=== PATIENT | female | born 1945 | race Caucasian/White ===

== ENCOUNTER 2018-01-09 12:44 | Inpatient (IN) | payer MEDICARE ==
[2018-01-09] MEDS ORDERED: Albuterol Sulfate 2.5 mg/3 ml Neb ONE (13:00)
[2018-01-09] MEDS ORDERED: Albuterol Sulfate 2.5 mg/0.5 ml Neb ONE (13:00)
[2018-01-09] MEDS ORDERED: methylPREDNISolone Sod Succ/PF 125 MG/2 ML VIAL ONE (13:20)
[2018-01-09] MEDS ORDERED: Water For Inject, Bacteriostat 30 ML ONE (13:21)
[2018-01-09] MEDS ORDERED: Lorazepam 2 MG/ML VIAL ONE (13:27)
[2018-01-09] MEDS ORDERED: Azithromycin 500 MG VIAL ONE (13:56)
[2018-01-09 13:59] LABS: #Basophils 0.1 thou/uL (0.0-0.2); #Eosinphils 0.1 thou/uL (0.0-0.7); #Lymphocytes 0.2 thou/uL (1.20-3.40); #Monocytes 0.4 thou/uL (0.11-0.59); #Neutrophils 18.3 thou/uL (1.40-6.50); %Basophils 0.7 % (0.0-1.0); %Eosinophils 0.3 % (0.0-10.0); %Monocytes 2.1 % (0.0-10.0); Hemoglobin 12.3 g/dL (12.0-16.0); Mean Corpuscular HGB CONC 31.2 g/dL (32.0-36.0); Mean Corpuscular Volume 83.2 fl (81.0-99.0); Mean Platelet Volume 7.6 fL (7.4-10.4); Platelet Count 294 thou/uL (130-400); Red Blood Cell (RBC) Count 4.74 mill/uL (4.20-5.40)
[2018-01-09 14:03] LABS: Actual Bicarbonate (HCO3a) 38.5 mEq/L (22-26); Base Excess (BEa) 9.2 mEq/L (0 (+/-) 2.5); CO2 Tension 82.3 mmHg (35.0-45.0); O2 Tension (PaO2) 86.1 mmHg (80.0-100.0); pH, Arterial 7.29 (7.35-7.45)
[2018-01-09 14:04] LABS: Hematocrit-ABG 41.4 % (36.0-47.0); Hemoglobin (Hb) 11.7 g/dL (12.0-16.0)
[2018-01-09 14:05] LABS: ALV-art Gradient 96.225 (0-20); Analyzer IN Cardio ER; Calcium, Ionized 1.2 mmol/L (1.12-1.30); Puncture Site LRA
[2018-01-09 14:18] LABS: BUN (Urea Nitrogen) 20 mg/dL (9.8-20.1); Calc. Creatinine Clearance 0 mL/min (70-130); Calcium 9.6 mg/dL (7.8-10.44); Estimated GFR-MDRD 77; Glucose 186 mg/dL (83-110)
[2018-01-09 14:22] LABS: Troponin I Less than 0.010 ng/mL (< 0.028)
[2018-01-09 14:27] LABS: Anion Gap 14 mmol/L (10-20); Carbon Dioxide 36 mmol/L (23-31); Chloride 93 mmol/L (98-107); Potassium 3.7 mmol/L (3.5-5.1); Sodium 139 mmol/L (136-145)
[2018-01-09] MEDS ORDERED: Magnesium Sulfate 3 GM in Sodium Chloride 0.9% 100 ML IVPB SCH (15:30)
[2018-01-09] MEDS ORDERED: Mag-Al 1200 mg/1200 mg/30 ML UDCUP PO PRN (15:47)
[2018-01-09] MEDS ORDERED: HumaLOG 300 UNITS/3 ML VIAL SC PRN (15:47)
[2018-01-09] MEDS ORDERED: Acetaminophen 325 MG TAB PO PRN (15:47)
[2018-01-09] MEDS ORDERED: Guaifenesin DM 100-10/5 ML UDCUP PO PRN (15:47)
[2018-01-09] MEDS ORDERED: Acetaminophen 650 MG Suppository PR PRN (15:47)
[2018-01-09] MEDS ORDERED: Dextrose 50% Abboject 50 ML SYRINGE SLOW IVP PRN (15:47)
[2018-01-09] MEDS ORDERED: Dextrose 5% in Water 1,000 ML IV PRN (15:47)
[2018-01-09] MEDS ORDERED: Ondansetron HCl/PF 4 MG/2 ML Vial IVP PRN (15:47)
[2018-01-09 15:59] VITALS: BMI 34.0
[2018-01-09] MEDS ORDERED: Benzonatate 100 MG CAP PO SCH (16:00)
[2018-01-09 16:07] LABS: Troponin I Less than 0.010 ng/mL (< 0.028)
[2018-01-09] MEDS: Sodium Chloride 0.9% 1,000 ML IV SCH (16:11)
[2018-01-09] MEDS: Cefepime 1 GM in Sodium Chloride 0.9% 100 ML IVPB SCH (16:12)
[2018-01-09] MEDS: HumaLOG 300 UNITS/3 ML VIAL SC PRN (16:41)
[2018-01-09] MEDS: Lorazepam 2 MG/ML VIAL SLOW IVP PRN ×2 (17:44→22:01)
--- NOTE | 2018-01-09 20:20 | HP ---
REASON FOR ADMISSION: Acute respiratory failure, chronic obstructive pulmonary disease exacerbation. HISTORY OF PRESENT ILLNESS: Please note majority of this history is obtained by my talking to patient's as the patient is in severe respiratory failure and is on BiPAP and is in and out of consciousness. Per , the patient was hospitalized at [facility] and was placed in ICU on BiPAP, 6 weeks back. After that, she was sent to [facility] for further recuperation. She came back home on Thursday. From then on, she has been progressively declining. She did not participate well with physical therapy and was very tired yesterday. She did not eat last night. Her shortness of breath was getting worse. She is on 3 liters home oxygen and prednisone 20 mg daily. As patient was not getting better, they took her back to [facility] from where she was transferred here as there was no ICU beds there. The patient also has known history of lung cancer and apparently has been in remission from last year and a half or so. No complaints of fever as such. She uses Trilogy ventilator at home. She also follows up with Dr. Barrett for Pulmonology. PAST MEDICAL AND SURGICAL HISTORY: History of COPD, left lung cancer with recurrence in the right lung in 2016 and has received 5 doses of radiation therapy for the same from Dr. Thacker. She has had regular PET scans done and has not had any recurrence per and is in remission. Hypertension, diabetes mellitus type 2, appendectomy, and hernia repair. CURRENT MEDICATIONS: The patient is on DuoNebs q.6 hourly, Lasix 20 mg daily, Protonix 40 mg daily, prednisone 20 mg daily, valsartan with hydrochlorothiazide 160/12.5 mg daily, Symbicort 80/4.5 mcg inhaler twice daily. ALLERGIES: IODINE, CODEINE, PENICILLIN, SULFA, and TETRACYCLINE. PERSONAL HISTORY: Quit smoking 11 years ago, but has smoked for nearly 30-40 years with 2 packs per day. Does not abuse alcohol or drugs. Lives with her . She has been ambulating 50 to 100 feet with a rolling walker inside the house. FAMILY HISTORY: Mother in her 80s from massive [place] in sleep. Father had emphysema and from complications from the same in his 70s. REVIEW OF SYSTEMS: Cannot be obtained as patient is not awake and oriented. PHYSICAL EXAMINATION: GENERAL: The patient is a 72-year-old female who is currently in moderate to severe respiratory distress, on BiPAP. VITAL SIGNS: Blood pressure 118/56, pulse 110 per minute, respiratory rate 26 per minute, temperature 98 degrees Fahrenheit, saturating 93% on BiPAP. NECK: Supple, no elevated JVD. HEENT: Eyes: Extraocular muscles intact. Pupils reacting to light. Oral cavity: Mucous membranes are dry. No exudates or congestion. CARDIOVASCULAR: S1, S2 heard. Tachycardic, no murmur. RESPIRATORY: Air entry 1+ bilaterally. Scattered wheezes plus bilateral. ABDOMEN: Soft, bowel sounds heard. No tenderness, rigidity or guarding. The patient is seen using accessory muscles of respiration including abdominal muscles and diaphragm and intercostal muscles. EXTREMITIES: Mild peripheral edema, no calf tenderness. VASCULAR SYSTEM: Peripheral pulses 1+ bilateral, no ischemic ulcerations or gangrene. CENTRAL NERVOUS SYSTEM: No gross focal deficits seen. The patient is seen moving all extremities. PSYCHIATRIC: Cannot be accurately assessed as patient is not oriented at present. LABORATORY AND X-RAY FINDINGS: White count of 19, H&H 12 and 39, platelet count 294 with 96% neutrophils. Blood gas done shows a pH of 7.29, pCO2 82, pO2 86, BUN 20, creatinine 0.7, serum bicarbonate is 36. Influenza A and B antigens are negative. Chest x-ray by my review shows chronic lung changes with poor inspiratory effort. Also, right upper lobe scarring is seen. CLINICAL IMPRESSION AND PLAN: The patient will be admitted to ICU for acute respiratory failure with hypoxia and hypercarbia, acute on chronic obstructive pulmonary disease exacerbation. The patient is steroid and oxygen dependent. She has been placed on Solu-Medrol 40 mg IV q.6 hourly. She has elevated white count likely from her chronic steroid use, but nevertheless in view of her recent hospitalization and being in multiple healthcare facilities, we will place her on cefepime and Levaquin for now. Blood and sputum cultures will be obtained. She will be on Mucinex, DuoNebs and Tessalon Perles. The patient's code status was discussed with the . The patient never wanted to be on the ventilator. In view of this, family wanted her to be DO NOT RESUSCITATE. Her overall prognosis is poor and the at bedside is clearly aware of it. He is also the power of it network engineer for patient. Dr. Pearl, internet project manager, has been notified from ER and has already seen the patient here in the ICU now. We will continue to closely monitor her in the ICU. LILIANA
[2018-01-09] MEDS: guaiFENesin ER 600 MG TAB PO SCH (21:53)
[2018-01-09] MEDS: Benzonatate 100 MG CAP PO SCH (21:53)
[2018-01-09] MEDS: Docusate 100 MG CAP PO SCH (21:53)
[2018-01-09] MEDS: Famotidine 20 MG TAB PO SCH (21:53)
[2018-01-10] MEDS: Lorazepam 2 MG/ML VIAL SLOW IVP PRN ×4 (01:01→18:30)
--- NOTE | 2018-01-10 01:11 | CON ---
DATE OF CONSULTATION: 01/09/2018 HISTORY OF PRESENT ILLNESS: Ms. Christensen is a 72-year-old female with chronic obstructive pulmonary disea se. She apparently was hospitalized at [facility] recently and went into rehab and has only been home for a day. She presented back after being transferred here by ground ambulance with r espiratory failure requiring BiPAP until she was placed on a facemask for transfer. She has been seen by Dr. Barrett here in the past. He has last seen her in the hospital in 2016. There is a chest CT from 12/2016, which was ordered by Dr. Sorenson, which showed a paraspinal hematoma, post treatment changes to her upper lobes. 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 She denies fever, chills, or sweats. Her says she has had progressively increasing shortness of breath for at least a week. He relayed this to the nurses. He was gone when I evaluated her. PAST MEDICAL HISTORY: Remarkable for diabetes, hypertension, asthma, laparotomy, herniorrhaphy, and squamous cell carcinoma. FAMILY HISTORY: Negative for lung disease in early age. REVIEW OF SYSTEMS: Not easily obtainable because she is extremely short of breath. CODE STATUS: She is adamant that she is never going to be intubated. PHYSICAL EXAMINATION: GENERAL: She could speak in two-word sentences. VITAL SIGNS: Her oximetry is in the mid 90s. I have turned her O2 down to where her oximetry is in the high 80s. She is on BiPAP. Her heart rate is 99, blood pressure 99/65. HEENT: Pupils are equal. Sclerae are anicteric. NECK: Supple. LUNGS: Remarkable for distant tight wheezes. HEART: Regular rhythm. ABDOMEN: Soft. EXTREMITIES: Without clubbing, cyanosis, or edema. LABORATORY DATA: White count 19, hemoglobin 12.3, platelets 294. Sodium 139, potassium 3.7, chlorid e 93, bicarbonate 36, BUN 20, creatinine 0.74. A pH 7.29, pCO2 of 82, pO2 of 86 and was on BiPAP 12/ 5 with FiO2 of 40%. She is down to 26% FiO2. Now, his sats were in the high 80s. Chest radiograph done in [place] reportedly was clear. IMPRESSION: 1. Chronic obstructive pulmonary disease/asthma exacerbation, severe. 2. Chronic respiratory failure with acute decompensation. 3. DO NOT RESUSCITATE status. She is adamant that she is never going to be intubated. This was rep orted to me by the physician in the ER, and I confirmed this. I have even asked her would she allow herself to be intubated for a few days and she quickly told me no. So, we will continue with BiPAP s upport, Ativan for comfort, as well as Xanax. She does not like morphine, so this will not be used. Critical care time, 30 minutes.
[2018-01-10] MEDS: Cefepime 1 GM in Sodium Chloride 0.9% 100 ML IVPB SCH ×2 (04:17→15:19)
[2018-01-10 04:43] LABS: #Lymphocytes 0.2 thou/uL (1.20-3.40); #Monocytes 0.2 thou/uL (0.11-0.59); #Neutrophils 11.4 thou/uL (1.40-6.50); %Eosinophils 0.2 % (0.0-10.0); %Lymphocytes 1.8 % (21.0-51.0); Hemoglobin 10.7 g/dL (12.0-16.0); Mean Corpuscular HGB CONC 30.9 g/dL (32.0-36.0); Mean Corpuscular Hemoglobin 25.9 pg (27.0-31.0); Mean Corpuscular Volume 83.9 fl (81.0-99.0); Mean Platelet Volume 7.8 fL (7.4-10.4); Platelet Count 200 thou/uL (130-400); RBC Distribution Width 15.8 % (11.5-14.5); Red Blood Cell (RBC) Count 4.12 mill/uL (4.20-5.40); White Blood Cell (WBC) Count 11.8 thou/uL (4.8-10.8)
[2018-01-10 04:55] LABS: Anion Gap 14 mmol/L (10-20); BUN (Urea Nitrogen) 21 mg/dL (9.8-20.1); Calc. Creatinine Clearance 100 mL/min (70-130); Calcium 8.7 mg/dL (7.8-10.44); Carbon Dioxide 30 mmol/L (23-31); Chloride 96 mmol/L (98-107); Estimated GFR-MDRD 82; Glucose 188 mg/dL (83-110); Potassium 4.4 mmol/L (3.5-5.1); Sodium 136 mmol/L (136-145)
[2018-01-10 05:35] LABS: Bilirubin Negative (Negative); Blood, Urine Negative (Negative); Clarity CLEAR (Clear); Glucose, Urine (Dipstick) 100 mg/dL (Negative); Leukocyte Negative (Negative); Nitrite Negative (Negative); Protein, Urine (Dipstick) Trace mg/dL (Neg-Trace); Specific Gravity, Urine 1.025 (1.002-1.036); Urobilinogen 0.2 mg/dL (0.2-1.0)
[2018-01-10 05:38] LABS: Bacteria/HPF None Seen HPF (None Seen); Hyaline Casts/LPF 0-3 HYALINE CAST LPF (0-3 Hyaline); RBC/HPF 0-3 HPF (0-3); Squamous Epithelial 0-3 HPF (0-3); WBC/HPF None Seen HPF (0-3)
[2018-01-10] MEDS: HumaLOG 300 UNITS/3 ML VIAL SC PRN ×3 (06:01→16:12)
[2018-01-10] MEDS: Famotidine 20 MG TAB PO SCH ×3 (09:11→22:15)
[2018-01-10] MEDS: guaiFENesin ER 600 MG TAB PO SCH ×3 (09:11→22:15)
[2018-01-10] MEDS: Docusate 100 MG CAP PO SCH ×3 (09:11→22:14)
[2018-01-10] MEDS: Enoxaparin Sodium 40 MG/0.4 ML SYRINGE SC SCH (09:12)
[2018-01-10] MEDS: Sodium Chloride 0.9% 1,000 ML IV SCH ×2 (09:12→15:36)
[2018-01-10] MEDS: Benzonatate 100 MG CAP PO SCH ×4 (09:12→22:14)
--- NOTE | 2018-01-10 13:56 | RAD ---
ONE VIEW CHEST: HISTORY: _Respiratory distress. COMPARISON: 09/27/15. FINDINGS: Slightly limited evaluation due to motion. Normal cardiac silhouette. Atherosclerosis of the aorta. The pulmonary vessels are within normal limits. Chronic changes in the lung bases. No pneumothora x or osseous abnormalities. Persistent opacification of the medial right lung apex. IMPRESSION: 1. Chronic changes. No acute process. 2. Atherosclerosis. POS: [facility]
--- NOTE | 2018-01-10 13:56 | PRG ---
DATE OF SERVICE: 01/10/2018 SUBJECTIVE: Ms. Brody Stewart remains on and off BiPAP. She says she feels better than yesterday, but still feels poorly. OBJECTIVE: VITAL SIGNS: She is afebrile, oximetry is 90 on 2 liter cannula, heart rate 118, blood pressure 122/ 59, respiratory rates in the 20s. LUNGS: Distant with equal breath sounds and a prolonged expiratory phase. HEART: Regular rhythm. S1 and S2 are normal. ABDOMEN: Soft and nontender. EXTREMITIES: Without edema. NEUROLOGIC: Grossly nonfocal. I discussed her code status with her again. She is still adamant that she is never going to be intub ated. She is very oriented and appropriate at this time. LABORATORY DATA: Her white count is 11.8, hemoglobin 10.7, platelets 200,000. Sodium 136, potassium 4.4, chloride 96, bicarbonate 30, BUN 21, creatinine 0.7. IMPRESSION: 1. Chronic obstructive pulmonary disease/asthma exacerbation. 2. History of squamous cell carcinoma of both lungs, upper lobe, status post radiation. 3. History of paraspinous hematoma last spring. 4. Acute on chronic respiratory failure with chronic hypoventilation. 5. Diabetes. 6. Hypertension. PLAN: Continue steroids, nebulizer treatments, and intermittent BiPAP. She will remain a do not res uscitate patient. Chances for functional recovery are quite guarded right now.
--- NOTE | 2018-01-10 15:41 | PDOC.PN ---
- Subjective Encounter Start Date: 01/10/18 Encounter Start Time: 07:00 Subjective: on bipap, wants water to drink -: feels better, no palp or chest pain -: still sob, is comfortable on bipap - Objective Resuscitation Status: Resuscitation Status DNR:Do Not Resuscitate MAR Reviewed: Yes Vital Signs & Weight: Vital Signs (12 hours) Temp Pulse Resp Pulse Ox 01/10/18 13:49 122 H 01/10/18 13:48 121 H 30 H 90 L 01/10/18 11:31 98.0 F 90 L 01/10/18 10:56 99 01/10/18 10:55 118 H 25 H 99 01/10/18 07:49 98.5 F 108 H 24 H 94 L 01/10/18 07:06 108 H 01/10/18 07:05 109 H 26 H 97 01/10/18 07:00 98.6 F 01/10/18 04:00 98 F 90 L Weight Admit Weight 198 lb 6.656 oz Most Recent Monitor Data Heart Rate from ECG 125 NIBP 141/73 NIBP BP-Mean 95 Respiration from ECG 27 SpO2 95 I&O: 01/09/18 01/10/18 01/11/18 06:59 06:59 06:59 Intake Total 927 360 Output Total 1600 0 Balance -673 360 Result Diagrams: 01/10/18 04:24 01/10/18 04:24 Additional Labs: Accuchecks 01/10/18 01/09/18 01/09/18 10:20 22:12 16:42 POC Glucose 229 H 203 H 213 H Phys Exam - Physical Examination HEENT: PERRLA, moist MMs Neck: no JVD, supple Respiratory: no rales, wheezing present prolonged exp Cardiovascular: RRR, no significant murmur Gastrointestinal: soft, non-tender, positive bowel sounds Musculoskeletal: no edema, pulses present Neurological: non-focal, moves all 4 limbs Dx/Plan (1) Acute respiratory failure with hypoxia and hypercarbia Code(s): J96.01 - ACUTE RESPIRATORY FAILURE WITH HYPOXIA; J96.02 - ACUTE RESPIRATORY FAILURE WITH HYPERCAPNIA Status: Acute (2) COPD exacerbation Code(s): J44.1 - CHRONIC OBSTRUCTIVE PULMONARY DISEASE W (ACUTE) EXACERBATION Status: Acute Comment: is oxygen and steroid dependent (3) DM type 2 (diabetes mellitus, type 2) Status: Chronic Qualifiers: Diabetes mellitus truck terminal manager insulin use: with truck terminal manager use Diabetes mellitus complication status: with unspecified complications Qualified Code(s) : E11.8 - Type 2 diabetes mellitus with unspecified complications; Z79.4 - ferry terminal agent (current) use of insulin; Z79.4 - ferry terminal agent (current) use of insulin; Z79.4 - MCFP (current) use of insulin; Z79.4 - MCFP (current) use of insulin (4) HTN (hypertension) Code(s): I10 - ESSENTIAL (PRIMARY) HYPERTENSION Status: Chronic Qualifiers: Hypertension type: essential hypertension (5) History of lung cancer Code(s): Z85.118 - PERSONAL HISTORY OF MALIGNANT NEOPLASM OF BRONCHUS AND LUNG Status: Chronic (6) Physical deconditioning Code(s): R53.81 - OTHER MALAISE Status: Acute - Plan is off and on bipap -: slightly better than last evening, still work of breathing is heavy -: place [place] cath, increase iv fluids to 100mls/hr, very min urine output -: is on solumedrol, cefepime, levaquin, nebs -: prognosis guarded * . Review of Systems - Medications/Allergies Allergies/Adverse Reactions: Allergies Allergy/AdvReac Type Severity Reaction Status Date / Time iodine Allergy Unknown Hives Verified 07/25/16 03:05 codeine Allergy Verified 07/25/16 03:05 Penicillins Allergy Verified 07/25/16 03:05 Sulfa (Sulfonamide Allergy Verified 07/25/16 03:05 Antibiotics) tetracycline [Tetracycline] Allergy Verified 07/25/16 03:05 Medications: Current Medications Acetaminophen (Tylenol) 650 mg PO Q4H PRN PRN Reason: Headache/Fever or Pain Acetaminophen (Tylenol) 650 mg MO Q4H PRN PRN Reason: Headache/Fever or Pain Al Hydroxide/Mg Hydroxide (Maalox) 30 ml PO Q6H PRN PRN Reason: Heartburn or Indigestion Albuterol/Ipratropium (Duoneb) 3 ml EZPAP [id number] JAILYN Last Admin: 01/10/18 13:48 Dose: 3 ml Benzonatate (Tessalon) 100 mg PO TID JAILYN Last Admin: 01/10/18 15:19 Dose: 100 mg Dextrose/Water (Dextrose 50%) 25 gm SLOW IVP PRN PRN PRN Reason: Hypoglycemia Docusate Sodium (Colace) 100 mg PO BID [facility] Last Admin: 01/10/18 09:11 Dose: 100 mg Enoxaparin Sodium (Lovenox) 40 mg SC 0900 [facility] Last Admin: 01/10/18 09:12 Dose: 40 mg Famotidine (Pepcid) 20 mg PO BID [facility] Last Admin: 01/10/18 09:11 Dose: 20 mg Glucagon (Glucagon) 1 mg IM PRN PRN PRN Reason: Hypoglycemia Guaifenesin (Mucinex) 600 mg PO BID [facility] Last Admin: 01/10/18 09:11 Dose: 600 mg Guaifenesin/Dextromethorphan (Robitussin Dm) 15 ml PO Q4H PRN PRN Reason: Cough Cefepime HCl 1 gm/ Sodium (Chloride) 100 mls @ 200 mls/hr IVPB 0400,1600 [facility] Last Admin: 01/10/18 15:19 Dose: 100 mls Dextrose/Water (D5w) 1,000 mls @ 0 mls/hr IV .Q0M PRN; As Directed PRN Reason: Hypoglycemia Levofloxacin 750 mg/ Device 150 mls @ 100 mls/hr IVPB Q24HR [facility] Last Admin: 01/09/18 16:12 Dose: 150 mls Sodium Chloride (Normal Saline 0.9%) 1,000 mls @ 100 mls/hr IV .Q10H [facility] Last Admin: 01/10/18 15:36 Dose: Not Given Insulin Human Lispro (Humalog) 0 units SC .MODERATE SLIDING SC PRN PRN Reason: Moderate Correctional Scale Last Admin: 01/10/18 10:27 Dose: 4 unit Insulin Human Lispro (Humalog) 0 units SC .BEDTIME SLIDING SC PRN PRN Reason: Bedtime Correctional Scale Last Admin: 01/09/18 22:12 Dose: 2 unit Lorazepam (Ativan) 1 mg SLOW IVP Q4H PRN PRN Reason: . Last Admin: 01/10/18 11:54 Dose: 1 mg Methylprednisolone Sodium Succinate (Solu-Medrol) 40 mg IVP Q6HR [facility] Last Admin: 01/10/18 11:55 Dose: 40 mg Ondansetron HCl (Zofran) 4 mg IVP Q6H PRN PRN Reason: Nausea/Vomiting
[2018-01-11] MEDS: Sodium Chloride 0.9% 1,000 ML IV SCH ×3 (02:00→22:04)
[2018-01-11] MEDS: Cefepime 1 GM in Sodium Chloride 0.9% 100 ML IVPB SCH ×2 (05:00→16:00)
[2018-01-11] MEDS: HumaLOG 300 UNITS/3 ML VIAL SC PRN ×3 (05:06→17:55)
[2018-01-11] MEDS: Lorazepam 2 MG/ML VIAL SLOW IVP PRN ×4 (05:30→22:14)
[2018-01-11] MEDS ORDERED: Morphine 4 MG/ML Carpuject SLOW IVP PRN (07:34)
[2018-01-11] MEDS: Docusate 100 MG CAP PO SCH ×2 (08:01→20:10)
[2018-01-11] MEDS: Benzonatate 100 MG CAP PO SCH ×3 (08:01→20:10)
[2018-01-11] MEDS: Enoxaparin Sodium 40 MG/0.4 ML SYRINGE SC SCH (08:01)
[2018-01-11] MEDS: guaiFENesin ER 600 MG TAB PO SCH ×2 (08:01→20:11)
[2018-01-11] MEDS: Famotidine 20 MG TAB PO SCH ×2 (08:01→20:11)
[2018-01-11] MEDS: Morphine 4 MG/ML VIAL SLOW IVP PRN (08:01)
--- NOTE | 2018-01-11 08:05 | PRG ---
DATE OF SERVICE: 01/11/2018 SUBJECTIVE: The patient remains on BiPAP. She is short of breath and nervous. OBJECTIVE: VITAL SIGNS: Temperature is 98.8, pulse 108, blood pressure 147/75, O2 saturation 96%. A 24-hour in take 3000, output 920. HEENT: Unremarkable. NECK: No JVD. LUNGS: Poor air movement with expiratory wheezing. CARDIAC: S1, S2, tachycardic. ABDOMEN: Soft, nontender. EXTREMITIES: No edema. LABORATORY DATA: Sodium 136, potassium 4.4, chloride 96, CO2 30, BUN 21, creatinine 0.7, glucose 188 and that was from yesterday. White blood cell count yesterday 11.8, hematocrit 34.6, platelet count 200. ASSESSMENT: 1. Chronic obstructive pulmonary disease with exacerbation. 2. Acute respiratory failure requiring mechanical ventilation. PLAN: She is DNR. We are working on comfort with Ativan and morphine to see if we can make her more synchronous with the BiPAP. Continue steroids, but reduce dose. Continue antibiotics. I will raman luis with her when he arrives.
[2018-01-11] MEDS: cloNIDine 0.2 MG TAB PO PRN (11:39)
--- NOTE | 2018-01-11 16:53 | PDOC.PN ---
- Subjective Encounter Start Date: 01/11/18 Encounter Start Time: 09:20 Subjective: is on bipap -: responds to verbal stimuli, just recieved morphine and anxiety pill -: at bedside - Objective Resuscitation Status: Resuscitation Status DNR:Do Not Resuscitate MAR Reviewed: Yes Vital Signs & Weight: Vital Signs (12 hours) Temp Pulse Resp BP Pulse Ox 01/11/18 16:00 97.4 F L 01/11/18 15:42 112 H 22 H 96 01/11/18 13:01 112 H 01/11/18 13:00 112 H 20 96 01/11/18 12:00 97.7 F 01/11/18 11:39 173/106 H 01/11/18 10:31 120 H 01/11/18 10:29 121 H 26 H 98 01/11/18 08:00 97.8 F 120 H 26 H 95 01/11/18 07:00 97.8 F 01/11/18 06:29 111 H 96 01/11/18 06:28 111 H 26 H 96 Weight Admit Weight 198 lb 6.656 oz Weight 198 lb 6.656 oz Most Recent Monitor Data Heart Rate from ECG 108 NIBP 134/68 NIBP BP-Mean 94 Respiration from ECG 20 SpO2 96 I&O: 01/10/18 01/11/18 01/12/18 06:59 06:59 06:59 Intake Total 927 3000 90 Output Total 1600 920 540 Balance -673 2080 -450 Result Diagrams: 01/10/18 04:24 01/10/18 04:24 Additional Labs: Accuchecks 01/11/18 01/11/18 11:53 05:07 POC Glucose 199 H 211 H Phys Exam - Physical Examination HEENT: PERRLA, moist MMs Neck: no JVD, supple Respiratory: no wheezing, no rales rhonchi+, prolonged exp Cardiovascular: RRR, no significant murmur Gastrointestinal: soft, non-tender, no distention, positive bowel sounds Musculoskeletal: no edema, pulses present Neurological: non-focal, moves all 4 limbs Dx/Plan (1) Acute respiratory failure with hypoxia and hypercarbia Code(s): J96.01 - ACUTE RESPIRATORY FAILURE WITH HYPOXIA; J96.02 - ACUTE RESPIRATORY FAILURE WITH HYPERCAPNIA Status: Acute (2) COPD exacerbation Code(s): J44.1 - CHRONIC OBSTRUCTIVE PULMONARY DISEASE W (ACUTE) EXACERBATION Status: Acute Comment: is oxygen and steroid dependent (3) DM type 2 (diabetes mellitus, type 2) Status: Chronic Qualifiers: Diabetes mellitus buttermaker continuous churn insulin use: with usp use Diabetes mellitus complication status: with unspecified complications Qualified Code(s) : E11.8 - Type 2 diabetes mellitus with unspecified complications; Z79.4 - dedicated intermodal truck driver (current) use of insulin; Z79.4 - half-way (current) use of insulin; Z79.4 - dedicated intermodal truck driver (current) use of insulin; Z79.4 - half-way (current) use of insulin (4) HTN (hypertension) Code(s): I10 - ESSENTIAL (PRIMARY) HYPERTENSION Status: Chronic Qualifiers: Hypertension type: essential hypertension (5) History of lung cancer Code(s): Z85.118 - PERSONAL HISTORY OF MALIGNANT NEOPLASM OF BRONCHUS AND LUNG Status: Chronic (6) Physical deconditioning Code(s): R53.81 - OTHER MALAISE Status: Acute - Plan is mostly on bipap, not able to come out for significant period of time -: is DNR, prognosis guarded, updates given to at bedside -: on cefepime, levaquin, solumedrol and gentle iv hydration -: encourage po intake, ensure 1 can tid if she can tolerate -: urine output around 920mls last 24hrs * . Review of Systems - Medications/Allergies Allergies/Adverse Reactions: Allergies Allergy/AdvReac Type Severity Reaction Status Date / Time iodine Allergy Unknown Hives Verified 07/25/16 03:05 codeine Allergy Verified 07/25/16 03:05 Penicillins Allergy Verified 07/25/16 03:05 Sulfa (Sulfonamide Allergy Verified 07/25/16 03:05 Antibiotics) tetracycline [Tetracycline] Allergy Verified 07/25/16 03:05 Medications: Current Medications Acetaminophen (Tylenol) 650 mg PO Q4H PRN PRN Reason: Headache/Fever or Pain Acetaminophen (Tylenol) 650 mg MS Q4H PRN PRN Reason: Headache/Fever or Pain Al Hydroxide/Mg Hydroxide (Maalox) 30 ml PO Q6H PRN PRN Reason: Heartburn or Indigestion Albuterol/Ipratropium (Duoneb) 3 ml EZPAP [id number] JAILYN Last Admin: 01/11/18 15:42 Dose: 3 ml Benzonatate (Tessalon) 100 mg PO TID [facility] Last Admin: 01/11/18 14:43 Dose: 100 mg Clonidine (Catapres) 0.2 mg PO Q6H PRN PRN Reason: SBP Greater Than 170 Last Admin: 01/11/18 11:39 Dose: 0.2 mg Dextrose/Water (Dextrose 50%) 25 gm SLOW IVP PRN PRN PRN Reason: Hypoglycemia Docusate Sodium (Colace) 100 mg PO BID [facility] Last Admin: 01/11/18 08:01 Dose: 100 mg Enoxaparin Sodium (Lovenox) 40 mg SC 0900 [facility] Last Admin: 01/11/18 08:01 Dose: 40 mg Famotidine (Pepcid) 20 mg PO BID [facility] Last Admin: 01/11/18 08:01 Dose: 20 mg Glucagon (Glucagon) 1 mg IM PRN PRN PRN Reason: Hypoglycemia Guaifenesin (Mucinex) 600 mg PO BID [facility] Last Admin: 01/11/18 08:01 Dose: 600 mg Guaifenesin/Dextromethorphan (Robitussin Dm) 15 ml PO Q4H PRN PRN Reason: Cough Cefepime HCl 1 gm/ Sodium (Chloride) 100 mls @ 200 mls/hr IVPB 0400,1600 [facility] Last Admin: 01/11/18 05:00 Dose: 100 mls Dextrose/Water (D5w) 1,000 mls @ 0 mls/hr IV .Q0M PRN; As Directed PRN Reason: Hypoglycemia Levofloxacin 750 mg/ Device 150 mls @ 100 mls/hr IVPB Q24HR [facility] Last Admin: 01/10/18 16:13 Dose: 150 mls Sodium Chloride (Normal Saline 0.9%) 1,000 mls @ 70 mls/hr IV .[id number] [facility] Last Admin: 01/11/18 08:02 Dose: 1,000 mls Insulin Human Lispro (Humalog) 0 units SC .MODERATE SLIDING SC PRN PRN Reason: Moderate Correctional Scale Last Admin: 01/11/18 11:53 Dose: 2 unit Insulin Human Lispro (Humalog) 0 units SC .BEDTIME SLIDING SC PRN PRN Reason: Bedtime Correctional Scale Last Admin: 05/12/18 22:12 Dose: 2 unit Lorazepam (Ativan) 2 mg SLOW IVP Q2H PRN PRN Reason: . Last Admin: 01/11/18 11:39 Dose: 2 mg Methylprednisolone Sodium Succinate (Solu-Medrol) 20 mg IVP Q6HR JAIL[facility] Last Admin: 01/11/18 11:39 Dose: 20 mg Morphine Sulfate (Morphine) 4 mg SLOW IVP Q4H PRN PRN Reason: Dyspnea Last Admin: 01/11/18 08:01 Dose: 4 mg Ondansetron HCl (Zofran) 4 mg IVP Q6H PRN PRN Reason: Nausea/Vomiting
[2018-01-12 04:21] LABS: #Lymphocytes 0.3 thou/uL (1.20-3.40); #Monocytes 0.4 thou/uL (0.11-0.59); #Neutrophils 9.9 thou/uL (1.40-6.50); %Eosinophils 0.3 % (0.0-10.0); %Lymphocytes 2.8 % (21.0-51.0); %Monocytes 3.4 % (0.0-10.0); %Neutrophils 93.5 % (42.0-75.0); Hemoglobin 9.6 g/dL (12.0-16.0); Mean Corpuscular HGB CONC 31.9 g/dL (32.0-36.0); Mean Corpuscular Hemoglobin 26.2 pg (27.0-31.0); Mean Corpuscular Volume 82.4 fl (81.0-99.0); Mean Platelet Volume 7.1 fL (7.4-10.4); Platelet Count 180 thou/uL (130-400); RBC Distribution Width 15.8 % (11.5-14.5); Red Blood Cell (RBC) Count 3.67 mill/uL (4.20-5.40); White Blood Cell (WBC) Count 10.6 thou/uL (4.8-10.8)
[2018-01-12 04:43] LABS: Anion Gap 10 mmol/L (10-20); BUN (Urea Nitrogen) 23 mg/dL (9.8-20.1); Calc. Creatinine Clearance 100 mL/min (70-130); Calcium 8.4 mg/dL (7.8-10.44); Carbon Dioxide 32 mmol/L (23-31); Chloride 101 mmol/L (98-107); Estimated GFR-MDRD 82; Glucose 156 mg/dL (83-110); Potassium 4.8 mmol/L (3.5-5.1); Sodium 138 mmol/L (136-145)
[2018-01-12] MEDS: Cefepime 1 GM in Sodium Chloride 0.9% 100 ML IVPB SCH ×2 (04:58→15:47)
[2018-01-12] MEDS: HumaLOG 300 UNITS/3 ML VIAL SC PRN ×2 (05:05→12:08)
[2018-01-12] MEDS ORDERED: Furosemide 20 MG/2 ML VIAL IVP SCH (07:30)
--- NOTE | 2018-01-12 08:00 | PRG ---
DATE OF SERVICE: 01/12/2018 Thirty-five minutes critical care time. The patient remains on noninvasive ventilation. She is having some episodes of confusion. She is on and off of BiPAP. PHYSICAL EXAMINATION: VITAL SIGNS: Temperature 98.4, pulse 102, blood pressure 164/89, 24 intake 2073, output 1600. HEENT: Unremarkable. NECK: No JVD. LUNGS: Diffuse expiratory wheezing. CARDIAC: S1 and S2 regular. ABDOMEN: Soft, nontender. EXTREMITIES: Trace edema. LABORATORY DATA: Sodium 138, potassium 4.8, chloride 101, CO2 32, BUN 23, creatinine 0.7, glucose 15 6. White blood cell count 10, hematocrit 30, platelet count 180. ASSESSMENT: 1. Chronic obstructive pulmonary disease with exacerbation. 2. Acute on chronic respiratory failure requiring noninvasive ventilation. PLAN: 1. Continue intermittent BiPAP, steroids, nebulization treatments, and antibiotics. 2. Hold IV fluids as she may be getting a little fluid overloaded. 3. Continue to monitor labs. 4. Prognosis is guarded.
[2018-01-12] MEDS: Docusate 100 MG CAP PO SCH ×2 (08:16→21:44)
[2018-01-12] MEDS: Benzonatate 100 MG CAP PO SCH ×3 (08:16→21:44)
[2018-01-12] MEDS: Enoxaparin Sodium 40 MG/0.4 ML SYRINGE SC SCH (08:16)
[2018-01-12] MEDS: Famotidine 20 MG TAB PO SCH ×2 (08:17→21:39)
[2018-01-12] MEDS: guaiFENesin ER 600 MG TAB PO SCH ×2 (08:17→21:45)
[2018-01-12] MEDS: cloNIDine 0.2 MG TAB PO PRN (08:33)
[2018-01-12 08:37] VITALS: BP 196/99
[2018-01-12] MEDS: Morphine 4 MG/ML VIAL SLOW IVP PRN ×3 (09:26→21:51)
[2018-01-12] MEDS: Valsartan 80 MG TAB PO SCH (21:37)
[2018-01-12] MEDS: Hydrochlorothiazide 25 MG TAB PO SCH (21:40)
[2018-01-13 04:53] LABS: Anion Gap 10 mmol/L (10-20); BUN (Urea Nitrogen) 27 mg/dL (9.8-20.1); Calc. Creatinine Clearance 108 mL/min (70-130); Calcium 8.6 mg/dL (7.8-10.44); Carbon Dioxide 34 mmol/L (23-31); Chloride 97 mmol/L (98-107); Estimated GFR-MDRD 89; Glucose 148 mg/dL (83-110); Sodium 136 mmol/L (136-145)
[2018-01-13] MEDS: Morphine 4 MG/ML VIAL SLOW IVP PRN ×3 (05:26→20:36)
[2018-01-13] MEDS: Cefepime 1 GM in Sodium Chloride 0.9% 100 ML IVPB SCH ×2 (05:31→15:20)
--- NOTE | 2018-01-13 07:58 | PRG ---
DATE OF SERVICE: 01/13/2018 Ms. Stewart is a little more awake and talkative than yesterday. She complains of thirst. She asked me whether or not she was dying. PHYSICAL EXAMINATION: VITAL SIGNS: Temperature 97.6, pulse 108, blood pressure 103/84. 24 hour intake 1420, output 2200. HEENT: Unremarkable except for she is edentulous. NECK: No JVD. LUNGS: Clear, but distant breath sounds. CARDIAC: S1, S2, slightly tachycardic. ABDOMEN: Soft, obese, nontender, nondistended. EXTREMITIES: No clubbing, cyanosis, or edema. LABORATORY DATA: Sodium 136, potassium 5, chloride 97, CO2 34, BUN 27, creatinine 0.6, glucose 148. ASSESSMENT: 1. Chronic obstructive pulmonary disease exacerbation. 2. Acute on chronic respiratory failure requiring noninvasive mechanical ventilation. 3. Mild hypokalemia. PLAN: 1. I will back down on her pressure support settings on the BiPAP. 2. Continue the steroids. 3. Decrease breathing treatments to q.4h. 4. I will update the when he comes.
[2018-01-13] MEDS: Enoxaparin Sodium 40 MG/0.4 ML SYRINGE SC SCH (08:56)
[2018-01-13] MEDS: Docusate 100 MG CAP PO SCH ×2 (08:57→20:40)
[2018-01-13] MEDS: Famotidine 20 MG TAB PO SCH ×2 (08:57→20:39)
[2018-01-13] MEDS: guaiFENesin ER 600 MG TAB PO SCH ×2 (08:57→20:40)
[2018-01-13] MEDS: Benzonatate 100 MG CAP PO SCH ×3 (09:01→20:45)
[2018-01-13] MEDS: cloNIDine 0.2 MG TAB PO PRN (09:03)
[2018-01-13] MEDS: Lorazepam 2 MG/ML VIAL SLOW IVP PRN ×3 (09:03→20:39)
--- NOTE | 2018-01-13 13:37 | PDOC.PN ---
- Subjective Encounter Start Date: 01/12/18 Encounter Start Time: 10:00 patient is seen today, remains of Bipap per pulmonary, No other family member around. - Objective Resuscitation Status: Resuscitation Status DNR:Do Not Resuscitate MAR Reviewed: Yes Vital Signs & Weight: Vital Signs (12 hours) Temp Pulse Resp BP Pulse Ox 01/13/18 12:00 97.7 F 01/13/18 11:02 121 H 17 97 01/13/18 09:03 196/99 H 01/13/18 08:00 98.1 F 125 H 23 H 01/13/18 07:57 112 H 01/13/18 07:56 114 H 20 93 L 01/13/18 04:00 97.8 F 01/13/18 03:26 101 H 24 H 99 Weight Admit Weight 198 lb 6.656 oz Weight 198 lb 6.656 oz Most Recent Monitor Data Heart Rate from ECG 125 NIBP 109/64 NIBP BP-Mean 79 Respiration from ECG 14 SpO2 95 I&O: 01/12/18 01/13/18 01/14/18 06:59 06:59 06:59 Intake Total 2073 1840 30 Output Total 1600 2375 425 Balance 383 -530 -932 Result Diagrams: 01/12/18 03:56 01/13/18 04:01 Additional Labs: Accuchecks 01/13/18 01/12/18 01/12/18 10:55 21:43 15:58 POC Glucose 185 H 162 H 174 H Radiology Reviewed by me: Yes Phys Exam - Physical Examination Neck: no nodes, no JVD Respiratory: wheezing present Cardiovascular: RRR, no significant murmur Gastrointestinal: soft, non-tender Musculoskeletal: no edema, pulses present Neurological: non-focal, normal sensation Dx/Plan (1) Acute respiratory failure with hypoxia and hypercarbia Code(s): J96.01 - ACUTE RESPIRATORY FAILURE WITH HYPOXIA; J96.02 - ACUTE RESPIRATORY FAILURE WITH HYPERCAPNIA Status: Acute Comment: pt remains on Bipap, pt has poor respiratory effort, 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 (2) COPD exacerbation Code(s): J44.1 - CHRONIC OBSTRUCTIVE PULMONARY DISEASE W (ACUTE) EXACERBATION Status: Acute Comment: is oxygen and steroid dependent (3) DM type 2 (diabetes mellitus, type 2) Status: Chronic Qualifiers: Diabetes mellitus termite inspector insulin use: with senior living use Diabetes mellitus complication status: with unspecified complications Qualified Code(s) : E11.8 - Type 2 diabetes mellitus with unspecified complications; Z79.4 - long-term (current) use of insulin; Z79.4 - long-term (current) use of insulin; Z79.4 - long-term (current) use of insulin; Z79.4 - long-term (current) use of insulin Comment: Will continue with SSI. (4) HTN (hypertension) Code(s): I10 - ESSENTIAL (PRIMARY) HYPERTENSION Status: Chronic Qualifiers: Hypertension type: essential hypertension Comment: at [facility], Will continue with home emds. (5) History of lung cancer Code(s): Z85.118 - PERSONAL HISTORY OF MALIGNANT NEOPLASM OF BRONCHUS AND LUNG Status: Chronic - Plan cont current plan of care, PT/OT, socially responsible investment adviser, respiratory therapy, incentive spirometry, DVT proph w/lovenox * . - Discharge Day Encounter end time: 10:35 Review of Systems - Review of Systems Eyes: negative: Pain, Vision Change, Conjunctivae Inflammation, Eyelid Inflammation, Redness, Other ENT: negative: Ear Pain, Ear Discharge, Nose Pain, Nose Discharge, Nose Congestion, Mouth Pain, Mouth Swelling, Throat Pain, Throat Swelling, Other Respiratory: Shortness of Breath, SOB with Excertion, Wheezing Cardiovascular: negative: chest pain, palpitations, orthopnea, paroxysmal nocturnal dyspnea, edema, light headedness, other Gastrointestinal: negative: Nausea, Vomiting, Abdominal Pain, Diarrhea, Constipation, Melena, Hematochezia, Other Genitourinary: negative: Dysuria, Frequency, Incontinence, Hematuria, Retention , Other Skin: negative: Rash, Lesions, Reza, Bruising, Other - Medications/Allergies Allergies/Adverse Reactions: Allergies Allergy/AdvReac Type Severity Reaction Status Date / Time iodine Allergy Unknown Hives Verified 07/25/16 03:05 codeine Allergy Verified 07/25/16 03:05 Penicillins Allergy Verified 07/25/16 03:05 Sulfa (Sulfonamide Allergy Verified 07/25/16 03:05 Antibiotics) tetracycline [Tetracycline] Allergy Verified 07/25/16 03:05 Medications: Current Medications Acetaminophen (Tylenol) 650 mg PO Q4H PRN PRN Reason: Headache/Fever or Pain Acetaminophen (Tylenol) 650 mg [place] Q4H PRN PRN Reason: Headache/Fever or Pain Al Hydroxide/Mg Hydroxide (Maalox) 30 ml PO Q6H PRN PRN Reason: Heartburn or Indigestion Albuterol/Ipratropium (Duoneb) 3 ml NEB [id number] [facility] Last Admin: 01/13/18 11:02 Dose: 3 ml Benzonatate (Tessalon) 100 mg PO TID [facility] Last Admin: 01/13/18 09:01 Dose: 100 mg Clonidine (Catapres) 0.2 mg PO Q6H PRN PRN Reason: SBP Greater Than 170 Last Admin: 01/13/18 09:03 Dose: 0.2 mg Dextrose/Water (Dextrose 50%) 25 gm SLOW IVP PRN PRN PRN Reason: Hypoglycemia Docusate Sodium (Colace) 100 mg PO BID [facility] Last Admin: 01/13/18 08:57 Dose: 100 mg Enoxaparin Sodium (Lovenox) 40 mg SC 0900 [facility] Last Admin: 01/13/18 08:56 Dose: 40 mg Famotidine (Pepcid) 20 mg PO BID [facility] Last Admin: 01/13/18 08:57 Dose: 20 mg Glucagon (Glucagon) 1 mg IM PRN PRN PRN Reason: Hypoglycemia Guaifenesin (Mucinex) 600 mg PO BID [facility] Last Admin: 01/13/18 08:57 Dose: 600 mg Guaifenesin/Dextromethorphan (Robitussin Dm) 15 ml PO Q4H PRN PRN Reason: Cough Hydrochlorothiazide (Hydrochlorothiazide) 12.5 mg PO HS [facility] Last Admin: 01/12/18 21:40 Dose: 12.5 mg Cefepime HCl 1 gm/ Sodium (Chloride) 100 mls @ 200 mls/hr IVPB 0400,1600 [facility] Last Admin: 01/13/18 05:31 Dose: 100 mls Dextrose/Water (D5w) 1,000 mls @ 0 mls/hr IV .Q0M PRN; As Directed PRN Reason: Hypoglycemia Levofloxacin 750 mg/ Device 150 mls @ 100 mls/hr IVPB Q24HR [facility] Last Admin: 01/12/18 16:02 Dose: 150 mls Insulin Human Lispro (Humalog) 0 units SC .MODERATE SLIDING SC PRN PRN Reason: Moderate Correctional Scale Last Admin: 01/12/18 12:08 Dose: 4 unit Insulin Human Lispro (Humalog) 0 units SC .BEDTIME SLIDING SC PRN PRN Reason: Bedtime Correctional Scale Last Admin: 01/09/18 22:12 Dose: 2 unit Lorazepam (Ativan) 2 mg SLOW IVP Q2H PRN PRN Reason: . Last Admin: 01/13/18 12:07 Dose: 2 mg Methylprednisolone Sodium Succinate (Solu-Medrol) 20 mg IVP Q6HR [facility] Last Admin: 01/13/18 12:12 Dose: 20 mg Morphine Sulfate (Morphine) 4 mg SLOW IVP Q4H PRN PRN Reason: Dyspnea Last Admin: 01/13/18 12:07 Dose: 4 mg Ondansetron HCl (Zofran) 4 mg IVP Q6H PRN PRN Reason: Nausea/Vomiting Sodium Chloride (Flush - Normal Saline) 10 ml IVF PRN PRN PRN Reason: Saline Flush Valsartan (Diovan) 160 mg PO HS [facility] Last Admin: 01/12/18 21:37 Dose: 160 mg
[2018-01-13] MEDS: Hydrochlorothiazide 25 MG TAB PO SCH (20:40)
[2018-01-13] MEDS: Valsartan 80 MG TAB PO SCH (20:45)
[2018-01-14] MEDS: Morphine 4 MG/ML VIAL SLOW IVP PRN ×3 (04:21→14:04)
[2018-01-14] MEDS: Cefepime 1 GM in Sodium Chloride 0.9% 100 ML IVPB SCH ×2 (04:27→15:21)
[2018-01-14 05:45] LABS: Anion Gap 14 mmol/L (10-20); BUN (Urea Nitrogen) 26 mg/dL (9.8-20.1); Calc. Creatinine Clearance 106 mL/min (70-130); Calcium 9.2 mg/dL (7.8-10.44); Carbon Dioxide 35 mmol/L (23-31); Chloride 91 mmol/L (98-107); Estimated GFR-MDRD 88; Glucose 131 mg/dL (83-110); Sodium 135 mmol/L (136-145)
[2018-01-14] MEDS: Docusate 100 MG CAP PO SCH ×2 (08:53→21:06)
[2018-01-14] MEDS: Benzonatate 100 MG CAP PO SCH ×3 (08:53→21:06)
[2018-01-14] MEDS: Enoxaparin Sodium 40 MG/0.4 ML SYRINGE SC SCH (08:53)
[2018-01-14] MEDS: Famotidine 20 MG TAB PO SCH ×2 (08:54→21:06)
[2018-01-14] MEDS: guaiFENesin ER 600 MG TAB PO SCH ×2 (08:54→21:06)
--- NOTE | 2018-01-14 10:02 | PRG ---
DATE OF SERVICE: 01/14/2018 SUBJECTIVE: Patient remains on BiPAP. She is sedated on morphine and Ativan. PHYSICAL EXAMINATION: VITAL SIGNS: Temperature 97.9, pulse 111, blood pressure 146/68, a 24-hour intake 510, output 1845. GENERAL: She looks chronically ill. HEENT: She has periorbital edema. Oropharynx clear. NECK: No JVD. LUNGS: Diminished breath sounds bilaterally, no wheezing. CARDIAC: S1 and S2 regular. ABDOMEN: Soft, nontender. EXTREMITIES: Trace edema throughout. LABORATORY DATA: Sodium 135, potassium 5, chloride 101, CO2 35, BUN 26, creatinine 0.6, and glucose 131. ASSESSMENT: 1. Chronic obstructive pulmonary disease with exacerbation. 2. Acute on chronic respiratory failure. 3. Mild hyperkalemia. PLAN: The patient is not doing well and I do not forecast her getting any better. I spoke with the patient's family at the bedside yesterday afternoon. The family has also been meeting with [facility]. It sounds like everyone is leaning toward inpatient hospice and I would agree with that. Fo r the time being, we will continue with antibiotics and nebulization treatments, but I have no object ion to scaling back on medications when that becomes needed.
--- NOTE | 2018-01-14 11:40 | PDOC.PN ---
- Subjective Encounter Start Date: 01/13/18 Encounter Start Time: 11:00 Patient Seen today, still on Bipap, He says he cannot breath, he was Sating 88% on 35% Fi02. No family memeber at bedside., - Objective Resuscitation Status: Resuscitation Status DNR:Do Not Resuscitate MAR Reviewed: Yes Vital Signs & Weight: Vital Signs (12 hours) Temp Pulse Resp Pulse Ox 01/14/18 11:06 105 H 01/14/18 11:05 105 H 15 94 L 01/14/18 11:00 97.8 F 01/14/18 08:00 97.5 F L 105 H 22 H 01/14/18 07:38 101 H 01/14/18 07:37 102 H 17 92 L 01/14/18 04:00 97.9 F 112 H 01/14/18 03:59 95 01/14/18 00:00 98.0 F Weight Admit Weight 198 lb 6.656 oz Weight 198 lb 6.656 oz Most Recent Monitor Data Heart Rate from ECG 104 NIBP 115/71 NIBP BP-Mean 83 Respiration from ECG 15 SpO2 94 I&O: 01/13/18 01/14/18 01/15/18 06:59 06:59 06:59 Intake Total 1840 510 20 Output Total 2375 1845 440 [facility] -134 -1335 -420 Result Diagrams: 01/12/18 03:56 01/14/18 04:42 Additional Labs: Accuchecks 01/14/18 01/14/18 01/13/18 08:56 04:43 22:36 POC Glucose 144 H 130 H 171 H 01/13/18 17:10 POC Glucose 172 H Radiology Reviewed by me: Yes Phys Exam - Physical Examination HEENT: PERRLA, moist MMs Neck: no nodes, no JVD Respiratory: wheezing present Cardiovascular: RRR, no significant murmur Gastrointestinal: soft, non-tender Musculoskeletal: no edema, pulses present Psychiatric: normal affect, A&O x 3 Dx/Plan (1) Acute respiratory failure with hypoxia and hypercarbia Code(s): J96.01 - ACUTE RESPIRATORY FAILURE WITH HYPOXIA; J96.02 - ACUTE RESPIRATORY FAILURE WITH HYPERCAPNIA Status: Acute Comment: pt remains on Bipap, pt has poor respiratory effort, 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 (2) COPD exacerbation Code(s): J44.1 - CHRONIC OBSTRUCTIVE PULMONARY DISEASE W (ACUTE) EXACERBATION Status: Acute Comment: is oxygen and steroid dependent (3) DM type 2 (diabetes mellitus, type 2) Status: Chronic Qualifiers: Diabetes mellitus alf insulin use: with terminal gauger use Diabetes mellitus complication status: with unspecified complications Qualified Code(s) : E11.8 - Type 2 diabetes mellitus with unspecified complications; Z79.4 - correction (current) use of insulin; Z79.4 - correction (current) use of insulin; Z79.4 - middle or intermediate school principal (current) use of insulin; Z79.4 - middle or intermediate school principal (current) use of insulin Comment: Will continue with SSI. (4) HTN (hypertension) Code(s): I10 - ESSENTIAL (PRIMARY) HYPERTENSION Status: Chronic Qualifiers: Hypertension type: essential hypertension Comment: at [facility], Will continue with home emds. (5) History of lung cancer Code(s): Z85.118 - PERSONAL HISTORY OF MALIGNANT NEOPLASM OF BRONCHUS AND LUNG Status: Chronic - Plan cont current plan of care, social studies teacher, respiratory therapy, incentive spirometry, DVT proph w/lovenox Linsey has Endstage COPD, continuoing on BIPAP now, pt is DNI/And DNR. Poor prognosis per pulmonary. Will need to discuss about palliative care if no reasonable improvement. - Discharge Day Encounter end time: 11:35 Review of Systems - Review of Systems Constitutional: weakness Eyes: negative: Pain, Vision Change, Conjunctivae Inflammation, Eyelid Inflammation, Redness, Other Respiratory: Shortness of Breath, SOB with Excertion, Wheezing Cardiovascular: negative: chest pain, palpitations, orthopnea, paroxysmal nocturnal dyspnea, edema, light headedness, other Gastrointestinal: negative: Nausea, Vomiting, Abdominal Pain, Diarrhea, Constipation, Melena, Hematochezia, Other Musculoskeletal: negative: Neck Pain, Shoulder Pain, Arm Pain, Back Pain, Hand Pain, Leg Pain, Foot Pain, Other Skin: negative: Rash, Lesions, Reza, Bruising, Other - Medications/Allergies Allergies/Adverse Reactions: Allergies Allergy/AdvReac Type Severity Reaction Status Date / Time iodine Allergy Unknown Hives Verified 07/25/16 03:05 codeine Allergy Verified 07/25/16 03:05 Penicillins Allergy Verified 07/25/16 03:05 Sulfa (Sulfonamide Allergy Verified 07/25/16 03:05 Antibiotics) tetracycline [Tetracycline] Allergy Verified 07/25/16 03:05 Medications: Current Medications Acetaminophen (Tylenol) 650 mg PO Q4H PRN PRN Reason: Headache/Fever or Pain Acetaminophen (Tylenol) 650 mg AR Q4H PRN PRN Reason: Headache/Fever or Pain Al Hydroxide/Mg Hydroxide (Maalox) 30 ml PO Q6H PRN PRN Reason: Heartburn or Indigestion Albuterol/Ipratropium (Duoneb) 3 ml NEB [id number] [facility] Last Admin: 01/14/18 11:05 Dose: 3 ml Benzonatate (Tessalon) 100 mg PO TID [facility] Last Admin: 01/14/18 08:53 Dose: Not Given Clonidine (Catapres) 0.2 mg PO Q6H PRN PRN Reason: SBP Greater Than 170 Last Admin: 01/13/18 09:03 Dose: 0.2 mg Dextrose/Water (Dextrose 50%) 25 gm SLOW IVP PRN PRN PRN Reason: Hypoglycemia Docusate Sodium (Colace) 100 mg PO BID [facility] Last Admin: 01/14/18 08:53 Dose: Not Given Enoxaparin Sodium (Lovenox) 40 mg SC 0900 [facility] Last Admin: 01/14/18 08:53 Dose: 40 mg Famotidine (Pepcid) 20 mg PO BID [facility] Last Admin: 01/14/18 08:54 Dose: Not Given Glucagon (Glucagon) 1 mg IM PRN PRN PRN Reason: Hypoglycemia Guaifenesin (Mucinex) 600 mg PO BID [facility] Last Admin: 01/14/18 08:54 Dose: Not Given Guaifenesin/Dextromethorphan (Robitussin Dm) 15 ml PO Q4H PRN PRN Reason: Cough Hydrochlorothiazide (Hydrochlorothiazide) 12.5 mg PO HS [facility] Last Admin: 01/13/18 20:40 Dose: 12.5 mg Cefepime HCl 1 gm/ Sodium (Chloride) 100 mls @ 200 mls/hr IVPB 0400,1600 [facility] Last Admin: 01/14/18 04:27 Dose: 100 mls Dextrose/Water (D5w) 1,000 mls @ 0 mls/hr IV .Q0M PRN; As Directed PRN Reason: Hypoglycemia Levofloxacin 750 mg/ Device 150 mls @ 100 mls/hr IVPB Q24HR [facility] Last Admin: 01/13/18 17:11 Dose: 150 mls Insulin Human Lispro (Humalog) 0 units SC .MODERATE SLIDING SC PRN PRN Reason: Moderate Correctional Scale Last Admin: 01/12/18 12:08 Dose: 4 unit Insulin Human Lispro (Humalog) 0 units SC .BEDTIME SLIDING SC PRN PRN Reason: Bedtime Correctional Scale Last Admin: 01/09/18 22:12 Dose: 2 unit Lorazepam (Ativan) 2 mg SLOW IVP Q2H PRN PRN Reason: . Last Admin: 01/13/18 20:39 Dose: 2 mg Methylprednisolone Sodium Succinate (Solu-Medrol) 20 mg IVP Q6HR [facility] Last Admin: 01/14/18 11:08 Dose: 20 mg Morphine Sulfate (Morphine) 4 mg SLOW IVP Q4H PRN PRN Reason: Dyspnea Last Admin: 01/14/18 09:33 Dose: 4 mg Ondansetron HCl (Zofran) 4 mg IVP Q6H PRN PRN Reason: Nausea/Vomiting Sodium Chloride (Flush - Normal Saline) 10 ml IVF PRN PRN PRN Reason: Saline Flush Valsartan (Diovan) 160 mg PO HS [facility] Last Admin: 01/13/18 20:45 Dose: 160 mg
[2018-01-14] MEDS: Lorazepam 2 MG/ML VIAL SLOW IVP PRN (14:04)
[2018-01-14] MEDS: Hydrochlorothiazide 25 MG TAB PO SCH (21:06)
[2018-01-14] MEDS: Valsartan 80 MG TAB PO SCH (21:06)
[2018-01-15] MEDS: Cefepime 1 GM in Sodium Chloride 0.9% 100 ML IVPB SCH (04:17)
[2018-01-15 04:24] LABS: BUN (Urea Nitrogen) 27 mg/dL (9.8-20.1); Calc. Creatinine Clearance 110 mL/min (70-130); Calcium 9.1 mg/dL (7.8-10.44); Estimated GFR-MDRD Greater than 90; Glucose 162 mg/dL (83-110)
[2018-01-15 04:33] LABS: Anion Gap 16 mmol/L (10-20); Carbon Dioxide 35 mmol/L (23-31); Chloride 90 mmol/L (98-107); Potassium 5.2 mmol/L (3.5-5.1); Sodium 136 mmol/L (136-145)
[2018-01-15 07:17] VITALS: TEMP 98.5
[2018-01-15] MEDS ORDERED: Lorazepam 2 MG/ML VIAL IM PRN (07:24)
[2018-01-15] MEDS: guaiFENesin ER 600 MG TAB PO SCH (09:08)
[2018-01-15] MEDS: Benzonatate 100 MG CAP PO SCH (09:08)
[2018-01-15] MEDS: Docusate 100 MG CAP PO SCH (09:08)
[2018-01-15] MEDS: Enoxaparin Sodium 40 MG/0.4 ML SYRINGE SC SCH (09:09)
[2018-01-15] MEDS: Famotidine 20 MG TAB PO SCH (09:09)
--- NOTE | 2018-01-15 09:11 | PRG ---
DATE OF SERVICE: 01/15/2018 PULMONARY AND CRITICAL CARE PROGRESS NOTE SUBJECTIVE: Ms. Stewart has continued to struggle with her breathing overnight. She has been on BiPA P constantly from what I have told the family has made the decision to withdraw care [facility]. PHYSICAL EXAMINATION: VITAL SIGNS: Temperature 98.5, pulse 117, blood pressure 177/89, O2 sat running in the mid 90s. HEENT: Remarkable for edema. NECK: No JVD. LUNGS: Poor air movement. CARDIAC: S1 and S2, tachycardic. ABDOMEN: Soft. EXTREMITIES: No edema. LABORATORY DATA: Sodium 136, potassium 5.2, chloride 90, CO2 35, BUN 27, creatinine 0.6 and glucose 162. ASSESSMENT: 1. Chronic obstructive pulmonary disease with severe exacerbation. She is endstage in terms of her chronic obstructive pulmonary disease and this illness does not appear to be survivable. 2. Acute on chronic respiratory failure. RECOMMENDATIONS: The patient will be sent to the floor for inpatient hospice care. I have stopped a ll of her IV medications as the nursing staff has been unable to gain IV access and the family has re quested no further IVs. We will give her sublingual morphine as needed for comfort. I will also put her on Duragesic patch for comfort.
[2018-01-15] MEDS: Morphine 10 MG/0.5 ML ORAL SYRINGE SL PRN ×2 (11:10→12:04)
--- NOTE | 2018-01-15 15:49 | PDOC.PN ---
- Subjective Encounter Start Date: 01/14/18 Encounter Start Time: 10:00 Patient is seen today, remains on Bipap. very poor prognsosi, no improvement, unable to tolerate off Bipa. - Objective Resuscitation Status: Resuscitation Status DNR:Do Not Resuscitate MAR Reviewed: Yes Vital Signs & Weight: Vital Signs (12 hours) Temp Pulse Resp Pulse Ox 01/15/18 12:00 98.5 F 01/15/18 10:11 120 H 01/15/18 08:00 98.5 F 116 H 19 95 01/15/18 07:00 98.5 F 01/15/18 06:51 115 H 01/15/18 04:00 98.2 F Weight Admit Weight 198 lb 6.656 oz Weight 198 lb 6.656 oz Most Recent Monitor Data Heart Rate from ECG 116 NIBP 142/72 NIBP BP-Mean 90 Respiration from ECG 31 SpO2 86 I&O: 01/14/18 01/15/18 01/16/18 06:59 06:59 06:59 Intake Total 510 206 120 Output Total 1845 2100 910 Balance -1335 -1894 -790 Result Diagrams: 01/12/18 03:56 01/15/18 03:25 Additional Labs: Accuchecks 01/15/18 01/15/18 01/14/18 11:27 04:15 22:03 POC Glucose 148 H 169 H 178 H 01/14/18 17:04 POC Glucose 185 H Radiology Reviewed by me: Yes Phys Exam - Physical Examination HEENT: PERRLA, moist MMs Neck: no nodes Respiratory: wheezing present Cardiovascular: RRR, no significant murmur Gastrointestinal: soft, non-tender Musculoskeletal: no edema, pulses present Neurological: non-focal, normal sensation Lymphatic: no nodes Psychiatric: normal affect Dx/Plan (1) Acute respiratory failure with hypoxia and hypercarbia Code(s): J96.01 - ACUTE RESPIRATORY FAILURE WITH HYPOXIA; J96.02 - ACUTE RESPIRATORY FAILURE WITH HYPERCAPNIA Status: Acute Comment: pt remains on Bipap, pt has poor respiratory effort, 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 (2) COPD exacerbation Code(s): J44.1 - CHRONIC OBSTRUCTIVE PULMONARY DISEASE W (ACUTE) EXACERBATION Status: Acute Comment: is oxygen and steroid dependent (3) DM type 2 (diabetes mellitus, type 2) Status: Chronic Qualifiers: Diabetes mellitus senior living insulin use: with superintendent container terminal use Diabetes mellitus complication status: with unspecified complications Qualified Code(s) : E11.8 - Type 2 diabetes mellitus with unspecified complications; Z79.4 - MCC (current) use of insulin; Z79.4 - exterminator helper termite (current) use of insulin; Z79.4 - MCC (current) use of insulin; Z79.4 - exterminator helper termite (current) use of insulin Comment: Will continue with SSI. (4) HTN (hypertension) Code(s): I10 - ESSENTIAL (PRIMARY) HYPERTENSION Status: Chronic Qualifiers: Hypertension type: essential hypertension Comment: at [place], Will continue with home emds. (5) History of lung cancer Code(s): Z85.118 - PERSONAL HISTORY OF MALIGNANT NEOPLASM OF BRONCHUS AND LUNG Status: Chronic - Plan cont current plan of care, psych social worker, respiratory therapy, DVT proph w/ lovenox * . Review of Systems - Review of Systems Other: Unable to obtain ROS as pt is on Contunious BIpap - Medications/Allergies Allergies/Adverse Reactions: Allergies Allergy/AdvReac Type Severity Reaction Status Date / Time iodine Allergy Unknown Hives Verified 07/25/16 03:05 codeine Allergy Verified 07/25/16 03:05 Penicillins Allergy Verified 07/25/16 03:05 Sulfa (Sulfonamide Allergy Verified 07/25/16 03:05 Antibiotics) tetracycline [Tetracycline] Allergy Verified 07/25/16 03:05
== END 2018-01-15 14:36 | disposition hospice, inpatient (51) | DRG 189 ==
LOC: ERS 12:44 → CCU 14:56 → T4-A 01-15 14:26
PROVIDERS: ADMIT Internal Medicine; ATTEND Internal Medicine
PROC: 5A09557 Assistance with Respiratory Ventilation, Greater than 96 Consecutive Hours, Continuous Positive Airway Pressure (ICD-10-PCS; principal; 2018-01-09)
DX: J96.21 Acute and chronic respiratory failure with hypoxia (principal); J44.1 Chronic obstructive pulmonary disease with (acute) exacerbation; J96.22 Acute and chronic respiratory failure with hypercapnia; Z99.81 Dependence on supplemental oxygen; Z66 Do not resuscitate; Z51.5 Encounter for palliative care; I10 Essential (primary) hypertension; E11.9 Type 2 diabetes mellitus without complications; E87.5 Hyperkalemia; Z85.118 Personal history of other malignant neoplasm of bronchus and lung; Z87.891 Personal history of nicotine dependence; Z88.1 Allergy status to other antibiotic agents; Z88.5 Allergy status to narcotic agent; Z88.0 Allergy status to penicillin; Z88.2 Allergy status to sulfonamides; Z91.041 Radiographic dye allergy status; Z79.52 Long term (current) use of systemic steroids; Z79.4 Long term (current) use of insulin; Z79.899 Other long term (current) drug therapy
CPT/HCPCS: 36415; 36416; 71045; 80048; 81001; 82805; 84484; 85025; 85379; 87040; 87086; 87804; 93005; 94640; 94644; 94660; 94760; 96365; 96374; 96375; 99292; J0456; J0692; J1650; J1940; J1956; J2060; J2270; J2920; J2930; J3475; J7050; J7611; J7620

== ENCOUNTER 2018-01-15 14:49 | Inpatient (IN) | payer OTHER ==
[2018-01-15] MEDS ORDERED: Acetaminophen 650 MG Suppository PR PRN (15:07)
[2018-01-15] MEDS ORDERED: Hyoscyamine Sulfate SL 0.125 mg Tablet SL PRN (15:09)
[2018-01-15] MEDS ORDERED: Morphine 10 MG/0.5 ML ORAL SYRINGE SL PRN (15:17)
[2018-01-15] MEDS ORDERED: Lorazepam 2 MG/ML VIAL SLOW IVP PRN (15:24)
[2018-01-15] MEDS ORDERED: Lorazepam 2 MG/ML VIAL IM PRN (15:25)
[2018-01-15] MEDS: Morphine 4 MG/ML VIAL SLOW IVP PRN (15:56)
[2018-01-15 19:18] VITALS: BMI 27.4
[2018-01-16 07:28] VITALS: BP 162/79; TEMP 97.5
[2018-01-16] MEDS: Morphine 4 MG/ML VIAL SLOW IVP PRN (10:55)
[2018-01-16] MEDS ORDERED: Lorazepam 0.5 MG TAB PO PRN (14:49)
[2018-01-16] MEDS ORDERED: Lorazepam 0.5 MG TAB SL PRN (14:50)
[2018-01-16] MEDS ORDERED: Lorazepam 0.5 MG TAB FS PRN (14:50)
[2018-01-16] MEDS: Morphine 10 MG/0.5 ML ORAL SYRINGE SL SCH ×3 (16:04→21:21)
--- NOTE | 2018-01-18 14:35 | DS ---
DATE OF ADMISSION: 01/15/2018 DATE OF : 01/16/2018 HISTORY OF PRESENT ILLNESS: This was a 72-year-old female who was admitted for COPD exacerbation. T he patient failed all medical therapy and was admitted to hospice and . The patient on 01/16/2018 at 08:35 p.m. The patient's was comfortable and in no distress and the patient's wi shes of comfort care were initiated. The family was notified and no complications were reported.
== END 2018-01-16 20:07 | disposition expired | DRG 951 ==
LOC: T4-A 14:49
PROVIDERS: ADMIT Internal Medicine Nephrology; ATTEND Internal Medicine Nephrology
DX: Z51.5 Encounter for palliative care (principal); J96.01 Acute respiratory failure with hypoxia; J96.02 Acute respiratory failure with hypercapnia; J44.1 Chronic obstructive pulmonary disease with (acute) exacerbation; I10 Essential (primary) hypertension; E11.9 Type 2 diabetes mellitus without complications; Z66 Do not resuscitate; Z99.81 Dependence on supplemental oxygen; Z85.118 Personal history of other malignant neoplasm of bronchus and lung; Z87.891 Personal history of nicotine dependence; Z92.3 Personal history of irradiation; Z88.0 Allergy status to penicillin; Z88.2 Allergy status to sulfonamides; Z88.1 Allergy status to other antibiotic agents; Z88.5 Allergy status to narcotic agent; Z79.52 Long term (current) use of systemic steroids; Z79.899 Other long term (current) drug therapy
CPT/HCPCS: A4216; J2060; J2270